=== PATIENT | female | born 1955 | race Asian ===

== ENCOUNTER 2016-06-24 08:59 | Emergency (ER) | payer BC ==
[2016-06-24] MEDS ORDERED: diPHENhydraMINE IV* 50 MG/ML 1 ml VIAL (BENADRYL) IV ONE (09:28)
[2016-06-24] MEDS ORDERED: methylPREDNISolone 125 MG* 2 ML VIAL IV ONE (09:29)
[2016-06-24] MEDS ORDERED: Famotidine IV* 10 MG/ML 2 ML (20 mg) IV SLOW PU ONE (09:29)
--- NOTE | 2016-06-24 09:35 | ED ---
Allergic Reaction/Systemic - History of Current Complaint Chief Complaint: EDAllergicReaction Time Seen by Provider: 06/24/16 09:16 Hx Obtained From: Patient, Family/Rn Stars - patient does not speak Lithuanian Onset/Duration: Sudden Onset - pt awoke today with swollen eye lids and lips that are tingly. denies itching, SOB or diff swallowing. no new personal care items, but did start allergy pills 1 weeks ago from "allergy doctor". ? name of pills Timing: Constant Pain Intensity: 0 Location: Discrete @ - eye lids and lips Character: Swelling Aggravating Factor(s): Nothing Alleviating Factor(s): Nothing - has taken no meds Associated Signs And Symptoms: Negative: Chest Pain, Cough Wheezing, Diaphoresis , Difficulty Breathing, Nausea, Throat Tightening, Vomiting - Related Hx Possible Reaction To: Unknown - Allergies/Home Medications Allergies/Adverse Reactions: Allergies Allergy/AdvReac Type Severity Reaction Status Date / Time No Known Allergies Allergy Verified 06/24/16 09:10 Home Medications: Home Medications Cholecalciferol [Vitamin D3] 2,000 unit PO DAILY 06/24/16 [History Confirmed ] PMH/Surg Hx/FS Hx/Imm Hx Previously Healthy: Yes Endocrine/Hematology History: Denies: Other Endocrine/Hematological Disorders Cardiovascular History: Denies: Other Cardiovascular Problems/Disorders Respiratory History: Denies: Other Respiratory Problems/Disorders GI History: Denies: Other GI Disorders Musculoskeletal History: Denies: Other Musculoskeletal History Neurological History: Denies: Other Neuro Impairments/Disorders Psychiatric History: Denies: Other Psychiatric Issues/Disorders - Cancer History Hx Chemotherapy: No Hx Radiation Therapy: No Infectious Disease History: No Infectious Disease History: Denies: Traveled Outside the [place] in Last 30 Days - Family History Known Family History: Positive: None - Social History Occupation: Unemployed Lives: With Family Alcohol Use: None Substance Use Type: Reports: None Smoking Status (MU): Never Smoked Tobacco Review of Systems Constitutional: Negative Negative: Skin Diaphoresis Positive: Other - lid swelling ENT: Negative Cardiovascular: Negative Negative: Palpitations, Chest Pain Respiratory: Negative Negative: Shortness Of Breath, Cough Gastrointestinal: Negative Negative: Abdominal Pain Skin: Negative Neurological: Negative Negative: Headache, Weakness Psychological: Normal All Other Systems Reviewed And Are Negative: Yes Physical Exam Triage Information Reviewed: Yes Vital Signs On Initial Exam: Initial Vitals Temp Pulse Resp BP Pulse Ox 98.5 F 86 15 137/75 99 06/24/16 09:00 06/24/16 09:00 06/24/16 09:00 06/24/16 09:00 06/24/16 09:00 Vital Signs Reviewed: Yes Appearance: Positive: Well-Appearing, No Pain Distress, Well-Nourished Skin: Positive: Warm, Skin Color Reflects Adequate Perfusion, Dry, Other - few urticaria upper shoulders Eyes: Positive: Conjunctiva Clear, Other: - swelling upper and lower lids bilat ENT: Positive: Normal ENT inspection Neck: Positive: Supple, Nontender Respiratory/Lung Sounds: Positive: Clear to Auscultation, Other - no cough Cardiovascular: Positive: Normal, Pulses are Symmetrical in both Upper and Lower Extremities Musculoskeletal: Positive: Normal Neurological: Positive: Normal, Sensory/Motor Intact, Alert, Oriented to Person Place, Time Psychiatric: Positive: Normal Diagnostics - Vital Signs Vital Signs Temp Pulse Resp BP Pulse Ox 06/24/16 09:00 98.5 F 86 15 137/75 99 - Laboratory Lab Statement: Any lab studies that have been ordered have been reviewed, and results considered in the medical decision making process. Re-Evaluation - Re-Evaluation First Eval Re-Evaluation Time: 10:00 - hives fading, eyes becoming less swollen. pt alert, daughter at bedside Change: Improved Second Eval Re-Evaluation Time: 11:15 - fading swelling eye lids and lips. no SOB/CP or diff swallowing. pt was amb to bathroom w/o assist. hives resolved Change: Improved Allergic Reaction Course/Dx - Diagnoses Differential Diagnosis/HQI/PQRI: Positive: Anaphylaxis, Angioedema, Local Allergic Reaction, Urticaria, Other - drug allergy Provider Diagnoses: Allergic reaction Discharge - Discharge Plan Condition: Improved Disposition: HOME Prescriptions: predniSONE TAB* [Deltasone TAB*] 40 mg PO DAILY #3 tab Patient Education Materials: General Allergic Reaction (ED) Referrals: Eloy Malave MD [Primary Care Provider] - 2 Days (for recheck) Silver Patel MD [Medical Doctor] - (as planned next week) Additional Instructions: use prednisone as directed also take benadryl 50mg every 6-8 hours (this is an over the counter pill) return here if symptoms worsen at anytime
[2016-06-24 11:42] VITALS: BP 143/78
== END 2016-06-24 11:41 | disposition home or self-care (01) ==
LOC: ED 08:59
DX: T78.40XA Allergy, unspecified, initial encounter (principal); X58.XXXA Exposure to other specified factors, initial encounter; Y92.9 Unspecified place or not applicable
CPT/HCPCS: 96365; 96374; 96375; 99283; J1200; J2930